=== PATIENT | female | born 1995 ===

== ENCOUNTER 2016-12-10 18:57 | Emergency (ER) | payer MEDICAID ==
[2016-12-10 19:13] VITALS: RESP 16
--- NOTE | 2016-12-10 20:17 | ED PDOC ---
HPI: Female Pain Time Seen by Provider: 12/10/16 19:20 Chief Complaint (Nursing): Female Genitourinary Chief Complaint (Provider): Vaginal discharge History Per: Patient History/Exam Limitations: no limitations Onset/Duration Of Symptoms: Days (2) Current Symptoms Are (Timing): Still Present Additional Complaint(s): PT denies pain. Pt states she has thick white discharge and occasionally has odor. Pt states that she had similar in July. Different MR. Pak has yeast and BV at that time. PT states she uses 5 days course of metro-gel but it did not improve symptoms. Past Medical History Reviewed: Historical Data, Nursing Documentation, Vital Signs Vital Signs: Last Vital Signs Temp 99.1 F 12/10/16 19:10 Pulse 95 H 12/10/16 19:10 Resp 16 12/10/16 19:10 BP 108/61 12/10/16 19:10 Pulse Ox 100 12/10/16 19:10 - Medical History PMH: No Chronic Diseases - Surgical History Surgical History: No Surg Hx - Family History Family History: States: No Known Family Hx - Living Arrangements Living Arrangements: With Family - Home Medications Home Medications: Ambulatory Orders Medication Instructions Recorded Fluconazole [Diflucan] 150 mg PO ONCE #2 tab 12/10/16 - Allergies Allergies/Adverse Reactions: Allergies Allergy/AdvReac Type Severity Reaction Status Date / Time No Known Allergies Allergy Verified 12/10/16 19:10 Review of Systems ROS Statement: Except As Marked, All Systems Reviewed And Found Negative Constitutional: Negative for: Fever, Chills Genitourinary Female: Positive for: Vaginal Discharge. Negative for: Dysuria, Frequency, Vaginal Bleeding, Pelvic Pain Physical Exam - Reviewed Nursing Documentation Reviewed: Yes Vital Signs Reviewed: Yes - Physical Exam Appears: Positive for: Well, Non-toxic, No Acute Distress Head Exam: Positive for: ATRAUMATIC, NORMAL INSPECTION, NORMOCEPHALIC Skin: Positive for: Normal Color, Warm, DRY Eye Exam: Positive for: Normal appearance ENT: Positive for: Normal ENT Inspection Neck: Positive for: Normal, Painless ROM Respiratory: Negative for: Accessory Muscle Use, Respiratory Distress Gastrointestinal/Abdominal: Positive for: Normal Exam, Bowel Sounds, Soft. Negative for: Tenderness Pelvic Exam: Positive for: External Exam Normal, Bimanual Exam Normal, Discharge. Negative for: Speculum Exam Normal (white ), No Cerv. Motion Tender , No Masses, Active Bleeding, Cervicitis Back: Positive for: Normal Inspection Extremity: Positive for: Normal ROM Neurologic/Psych: Positive for: Alert, Oriented - ECG O2 Sat by Pulse Oximetry: 100 Disposition - Clinical Impression Clinical Impression: Vaginitis - Patient ED Disposition Is Patient to be Admitted: No Counseled Patient/Family Regarding: Diagnosis, Need For Followup, Rx Given - [facility]position [facility] Disposition: Routine/Home Disposition Time: 20:21 Condition: GOOD Prescriptions: Fluconazole [Diflucan] 150 mg PO ONCE #2 tab Instructions: Vaginitis (ED) Forms: [facility] (Azeri)
[2016-12-10 20:41] VITALS: BP 133/71; PULSE 86; TEMP 98.8; O2SAT 99
== END 2016-12-10 20:57 | disposition home or self-care (01) ==
LOC: H.ER 18:57
DX: N76.0 Acute vaginitis (principal)

== ENCOUNTER 2017-02-17 03:06 | Emergency (ER) | payer MEDICAID ==
[2017-02-17 03:18] VITALS: BP 107/76; RESP 16; TEMP 99.1; O2SAT 100
[2017-02-17 03:29] VITALS: PULSE 121
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
== END 2017-02-17 05:05 | disposition left against medical advice (07) ==
LOC: H.ER 03:06
DX: M79.604 Pain in right leg (principal)
CPT/HCPCS: 81025; 96372; 99283; J1885

== ENCOUNTER 2017-11-27 20:13 | Emergency (ER) | payer MEDICAID ==
[2017-11-27 20:30] VITALS: BP 107/65; PULSE 74; RESP 16; TEMP 98.3; O2SAT 96
== END 2017-11-27 21:35 | disposition left against medical advice (07) ==
LOC: H.ER 20:13
DX: Z02.89 Encounter for other administrative examinations (principal)

== ENCOUNTER 2018-01-15 09:36 | Emergency (ER) | payer MEDICAID ==
[2018-01-15 09:41] VITALS: RESP 18; TEMP 98.2; O2SAT 98
--- NOTE | 2018-01-15 10:38 | ED PDOC ---
HPI: Female Pain Time Seen by Provider: 01/15/18 10:22 Chief Complaint (Provider): Herpes infection History Per: Patient History/Exam Limitations: no limitations Onset/Duration Of Symptoms: Days (2) Current Symptoms Are (Timing): Still Present Additional Complaint(s): Pt. with burning in vaginal area. States feels same as when she gets herpes breakout. Has had it several times in the past. No rashes. No dysuria, abd pain, weakness, back pain. No fever. No vaginal dc. States no chance she is preg. Just wants a valtrex rx. Past Medical History Reviewed: Nursing Documentation, Vital Signs Vital Signs: Last Vital Signs Temp 98.2 F 01/15/18 09:39 Pulse 79 01/15/18 09:39 Resp 18 01/15/18 09:39 BP 105/66 01/15/18 09:39 Pulse Ox 98 01/15/18 09:39 - Medical History Other PMH: herpes - Surgical History Surgical History: No Surg Hx - Family History Family History: States: Unknown Family Hx - Home Medications Home Medications: Ambulatory Orders Medication Instructions Recorded Fluconazole [Diflucan] 150 mg PO QWK #2 tab 08/04/16 metroNIDAZOLE [Flagyl] 250 mg PO TID #21 tab 08/04/16 Benzocaine [Anbesol] 1 gm MM DAILY #1 gel 11/09/16 Carbamide Peroxide [Antiseptic 5 - 10 ml MM DAILY #60 solution 11/09/16 Mouth Cleanser] Fluconazole [Diflucan] 150 mg PO ONCE #2 tab 12/10/16 valACYclovir [Valtrex] 500 mg PO BID 3 Days tab 01/15/18 - Allergies Allergies/Adverse Reactions: Allergies Allergy/AdvReac Type Severity Reaction Status Date / Time No Known Allergies Allergy Verified 11/27/17 20:27 Review of Systems Constitutional: Negative for: Fever, Weakness Cardiovascular: Negative for: Chest Pain Respiratory: Negative for: Shortness of Breath Gastrointestinal: Negative for: Nausea, Vomiting, Abdominal Pain, Diarrhea, Constipation Genitourinary Female: Negative for: Dysuria, Hematuria Musculoskeletal: Negative for: Neck Pain Skin: Negative for: Rash Neurological: Negative for: Weakness Physical Exam - Reviewed Nursing Documentation Reviewed: Yes Vital Signs Reviewed: Yes - Physical Exam Appears: Positive for: Non-toxic, No Acute Distress Skin: Positive for: Normal Color, Warm, DRY Cardiovascular/Chest: Positive for: Regular Rate, Rhythm Respiratory: Positive for: CNT, Normal Breath Sounds Gastrointestinal/Abdominal: Positive for: Soft. Negative for: Tenderness Pelvic Exam: Positive for: External Exam Normal, Other (no rashes or dc noted; no labial swelling.) Back: Positive for: Normal Inspection. Negative for: L CVA Tenderness, R CVA Tenderness Extremity: Positive for: Normal ROM. Negative for: Tenderness, Pedal Edema Neurologic/Psych: Positive for: Alert, Oriented - ECG O2 Sat by Pulse Oximetry: 98 Pulse Ox Interpretation: Normal - Progress ED Course And Treament: 1041: Pt. demanding valtrex rx for herpes. States same episodes as past. Refusing any further urine or testing. Will rx accordingly. AAOx3. Disposition - Clinical Impression Clinical Impression: Herpes - Patient ED Disposition Is Patient to be Admitted: No Counseled Patient/Family Regarding: Diagnosis, Need For Followup, Rx Given - Disposition Referrals: Terry Ramsey DO [Staff Provider] - 01/16/18 Disposition: Routine/Home Disposition Time: 10:42 Condition: STABLE Additional Instructions: Return if not better in 3 days. Prescriptions: valACYclovir [Valtrex] 500 mg PO BID 3 Days tab Instructions: Genital Herpes (DC) Forms: [facility] ED School/Work Excuse
[2018-01-15 11:10] VITALS: BP 110/70; PULSE 80
== END 2018-01-15 11:09 | disposition home or self-care (01) ==
LOC: H.ER 09:36
DX: A60.00 Herpesviral infection of urogenital system, unspecified (principal)

== ENCOUNTER 2018-02-08 14:08 | Emergency (ER) | payer MEDICAID ==
[2018-02-08 14:30] VITALS: PULSE 96; RESP 18; TEMP 98.5; O2SAT 99
--- NOTE | 2018-02-08 15:05 | ED PDOC ---
HPI: Female Pain Time Seen by Provider: 02/08/18 14:32 Chief Complaint (Nursing): Female Genitourinary Chief Complaint (Provider): Suprapubic Pain History Per: Patient History/Exam Limitations: no limitations Onset/Duration Of Symptoms: Days Current Symptoms Are (Timing): Still Present Quality Of Discomfort: Cramping Additional Complaint(s): 22 year old female presents to the ER for an evaluation of lower center suprapubic pain. Patient states she took tests yesterday at home which were positive. Currently, she has cramping pain. Her LMP was on 01/06/18. Denies nausea, vomiting or diarrhea. OBGYB: Dr. Ramsey Abnormal Vaginal Bleeding: No Past Medical History Reviewed: Historical Data, Nursing Documentation, Vital Signs Vital Signs: Last Vital Signs Temp 98.5 F 02/08/18 14:27 Pulse 96 H 02/08/18 14:27 Resp 18 02/08/18 14:27 BP Pulse Ox 99 02/08/18 14:27 - Medical History PMH: No Chronic Diseases - Family History Family History: States: Unknown Family Hx - Social History Current smoker - smoking cessation education provided: Yes (Light Smoker < 10 Cigarettes Daily) Drugs: Denies - Home Medications Home Medications: Ambulatory Orders Medication Instructions Recorded Fluconazole [Diflucan] 150 mg PO QWK #2 tab 08/04/16 metroNIDAZOLE [Flagyl] 250 mg PO TID #21 tab 08/04/16 Benzocaine [Anbesol] 1 gm MM DAILY #1 gel 11/09/16 Carbamide Peroxide [Antiseptic 5 - 10 ml MM DAILY #60 solution 11/09/16 Mouth Cleanser] Fluconazole [Diflucan] 150 mg PO ONCE #2 tab 12/10/16 valACYclovir [Valtrex] 500 mg PO BID 3 Days tab 01/15/18 Comb No.42/Folic Acid 1 ctb PO DAILY #30 ctb 02/08/18 [Prena1 Chew] - Allergies Allergies/Adverse Reactions: Allergies Allergy/AdvReac Type Severity Reaction Status Date / Time No Known Allergies Allergy Verified 11/27/17 20:27 Review of Systems ROS Statement: Except As Marked, All Systems Reviewed And Found Negative Constitutional: Negative for: Fever, Chills Gastrointestinal: Positive for: Abdominal Pain. Negative for: Nausea, Vomiting, Diarrhea Genitourinary Female: Negative for: Dysuria, Frequency, Incontinence Physical Exam - Reviewed Nursing Documentation Reviewed: Yes Vital Signs Reviewed: Yes - Physical Exam Appears: Positive for: Well, Non-toxic, No Acute Distress Head Exam: Positive for: ATRAUMATIC, NORMAL INSPECTION, NORMOCEPHALIC Skin: Positive for: Normal Color, Warm, Dry. Negative for: Rash Eye Exam: Positive for: EOMI, Normal appearance, PERRL Gastrointestinal/Abdominal: Positive for: Normal Exam, Soft. Negative for: Tenderness, Guarding, Rebound Pelvic Exam: Positive for: Other (patient differed pelvic exam) Neurologic/Psych: Positive for: Alert, Oriented (x3). Negative for: Motor/Sensory Deficits - ECG O2 Sat by Pulse Oximetry: 99 (RA) Pulse Ox Interpretation: Normal Medical Decision Making Medical Decision Making: Time: 1453 Initial Plan: ED Urine Dipstick Urinalysis Reevaluation DIp (-) michele rivers and blood Preg (+) Pt educated on common symptoms in early and signs and symptoms of miscarriage and ectopic discussed at length Pt advised that tylenol is safe to take in and advised to return to ED if pain becomes severe or bleeding develops at anytime Pt scheduled to see Dr. Ramsey on 02/21 ---- Scribe Attestation: Documented by Ivonne Mcclendon, acting as a scribe for Sary Akins PA-C Provider Scribe Attestation: All medical record entries made by the Scribe were at my direction and personally dictated by me. I have reviewed the chart and agree that the record accurately reflects my personal performance of the history, physical exam, medical decision making, and the department course for this patient. I have also personally directed, reviewed, and agree with the discharge instructions and disposition. Disposition - Clinical Impression Clinical Impression: Abdominal pain during in first trimester - Patient ED Disposition Is Patient to be Admitted: No - Disposition Disposition: Routine/Home Disposition Time: :17 Condition: STABLE Prescriptions: Comb No.42/Folic Acid [Prena1 Chew] 1 ctb PO DAILY #30 ctb Instructions: Round Ligament Pain Forms: [facility] (Urdu)
[2018-02-08 15:26] VITALS: BP 132/72
== END 2018-02-08 15:50 | disposition home or self-care (01) ==
LOC: H.ER 14:08
DX: O26.91 Pregnancy related conditions, unspecified, first trimester (principal); R10.2 Pelvic and perineal pain; F17.210 Nicotine dependence, cigarettes, uncomplicated

== ENCOUNTER 2018-02-14 12:45 | Emergency (ER) | payer MEDICAID ==
[2018-02-14 12:52] VITALS: BP 126/76; PULSE 102; RESP 20; TEMP 98.5; O2SAT 99
--- NOTE | 2018-02-14 13:07 | ED PDOC ---
HPI: Female Pain Time Seen by Provider: 02/14/18 12:58 Chief Complaint (Nursing): Abdominal Pain History Per: Patient Onset/Duration Of Symptoms: Days (2) Current Symptoms Are (Timing): Still Present Severity: Moderate Quality Of Discomfort: Unable To Describe Associated Symptoms: denies: Fever, Nausea, Vomiting, Diarrhea, Urinary Symptoms Additional Complaint(s): Generalized abd pain asso with decreased appatite. x 2 days. Denies NVD. Denies vaginal bleeding. Denies fever or urinary sxs. Pt approx 5 weeks . Abnormal Vaginal Bleeding: No Past Medical History Vital Signs: Last Vital Signs Temp 98.5 F 02/14/18 12:49 Pulse 102 H 02/14/18 12:49 Resp 20 02/14/18 12:49 BP 126/76 02/14/18 12:49 Pulse Ox 99 02/14/18 12:49 - Medical History PMH: No Chronic Diseases - Family History Family History: States: Unknown Family Hx - Home Medications Home Medications: Ambulatory Orders Medication Instructions Recorded Fluconazole [Diflucan] 150 mg PO QWK #2 tab 08/04/16 metroNIDAZOLE [Flagyl] 250 mg PO TID #21 tab 08/04/16 Benzocaine [Anbesol] 1 gm MM DAILY #1 gel 11/09/16 Carbamide Peroxide [Antiseptic 5 - 10 ml MM DAILY #60 solution 11/09/16 Mouth Cleanser] Fluconazole [Diflucan] 150 mg PO ONCE #2 tab 12/10/16 valACYclovir [Valtrex] 500 mg PO BID 3 Days tab 01/15/18 Comb No.42/Folic Acid 1 ctb PO DAILY #30 ctb 02/08/18 [Prena1 Chew] Doxylamine/Pyridoxine HCl (B6) 1 each PO DAILY #20 tablet. 02/14/18 [Ana Mullen 10-10 mg Tablet] - Allergies Allergies/Adverse Reactions: Allergies Allergy/AdvReac Type Severity Reaction Status Date / Time No Known Allergies Allergy Verified 02/14/18 12:49 Review of Systems Constitutional: Negative for: Fever Gastrointestinal: Positive for: Abdominal Pain. Negative for: Nausea, Vomiting, Diarrhea Genitourinary Female: Negative for: Dysuria, Frequency, Vaginal Bleeding Physical Exam - Physical Exam Appears: Positive for: Non-toxic, No Acute Distress Skin: Positive for: Normal Color, Warm, DRY Gastrointestinal/Abdominal: Positive for: Bowel Sounds, Soft. Negative for: Tenderness Back: Negative for: L CVA Tenderness, R CVA Tenderness Extremity: Positive for: Normal ROM Neurologic/Psych: Positive for: Alert, Oriented - Laboratory Results Result Diagrams: 02/14/18 13:15 02/14/18 13:15 - ECG O2 Sat by Pulse Oximetry: 99 Disposition - Clinical Impression Clinical Impression: Abdominal pain during - Patient ED Disposition Is Patient to be Admitted: No Counseled Patient/Family Regarding: Studies Performed, Diagnosis, Need For Followup, Rx Given - Disposition Referrals: Terry Ramsey DO [Staff Provider] - Disposition: Routine/Home Disposition Time: 14:45 Condition: FAIR Prescriptions: Doxylamine/Pyridoxine HCl (B6) [Ana Mullen 10-10 mg Tablet] 1 each PO DAILY #20 tablet. Instructions: Morning Sickness (DC) Forms: [facility] (Djiboutian)
[2018-02-14 13:28] LABS: BASO # 0.1 K/uL (0.0-0.2); BASO % 0.7 % (0.0-2.0); EOS # 0.8 K/uL (0.0-0.7); EOS % 6.4 % (0.0-4.0); HEMOGLOBIN 13.4 g/dL (12.0-16.0); LYMPH # 2.2 K/uL (1.0-4.3); LYMPH % 16.5 % (20.0-40.0); MEAN CELL VOLUME 88.4 fl (81.0-99.0); MEAN CORPUSCULAR HEMOGLOBIN 29.1 pg (27.0-31.0); MEAN CORPUSCULAR HGB CONC 32.9 g/dL (33.0-37.0); MEAN PLATELET VOLUME 8.8 fl (7.2-11.7); MONO # 1.2 K/uL (0.0-0.8); MONO % 9.4 % (0.0-10.0); NEUT # 8.8 K/uL (1.8-7.0); RBC 4.61 Mil/uL (3.80-5.20); RED CELL DISTRIBUTION WIDTH 13.6 % (11.5-14.5); WHITE BLOOD COUNT 13.2 K/uL (4.8-10.8)
[2018-02-14 13:39] LABS: ALB/GLOB RATIO 1.4 (1.0-2.1); ALBUMIN 4.4 g/dL (3.5-5.0); ALT/SGPT 20 U/L (9-52); AST/SGOT 21 U/L (14-36); BLOOD UREA NITROGEN 7 mg/dl (7-17); CALCIUM 9.7 mg/dL (8.4-10.2); GFR NON-AFRICAN AMERICAN > 60
--- NOTE | 2018-02-15 09:57 | US ---
Date of service: 2018-02-14 13:07:54 PROCEDURE: OB Pelvic Ultrasound HISTORY: r/o ectopic LMP: COMPARISON: None available. FINDINGS: UTERUS: Gestational sac: Diameter is 11 mm equivalent to 5 weeks 2 days gestational age. Marcelline-rump length is 5 mm equivalent to 6 weeks 2 days. Composite gestational age by ultrasound is 5 weeks 0 days Heart rate: 99 bpm. Debby-gestational hemorrhage: None. Date of delivery (Ultrasound estimated) : 10/11/2018 Uterus measures 6.8 x 6.1 x 4.9 cm. Normal in size and appearance. CERVIX: Long and closed RIGHT OVARY: Measures 3.1 x 2.7 x 2.0 cm. No mass lesion. Normal flow. LEFT OVARY: Measures 2.9 x 2.3 x 1.6 cm. No solid mass. Normal flow. FREE FLUID: None. OTHER FINDINGS: None. IMPRESSION: Single live intrauterine gestation of approximately 5 weeks 0 days gestational age. heart rate 99 beats per minute. No subchorionic hemorrhage. Otherwise unremarkable.
== END 2018-02-14 14:55 | disposition home or self-care (01) ==
LOC: H.ER 12:45
DX: O26.91 Pregnancy related conditions, unspecified, first trimester (principal); Z3A.01 Less than 8 weeks gestation of pregnancy

== ENCOUNTER 2018-06-30 16:05 | Emergency (ER) | payer MEDICAID, OTHER ==
[2018-06-22 04:57] VITALS: BMI 32.2
--- NOTE | 2018-07-04 14:31 | OBHP ---
Datetime: 06/30/2018 17:01 IP Adm Impression: , intrauterine ; No Active Labor IP Chief Complaint Other: Active herpes lesion IP Admit Plan: Observation/Evaluation; Discharge home Admit Comment, IP Provider: with IUP at 25wks presenting here today for evaluation of reactivation of genital herpes which started about 2 days ago. patient reports of history of herpes which rarely recurs and has been having an average of about 2 outbreaks per year. This is the first outbreak in her current and has previously been sherice frederick with valtrex. care with Dr Ramsey, Uncomplicated course. O; Afebrile Heart: RRR Chest: Clinically Stable Abd: Soft, NT, BS- present FHR- 150s regular TOCO- None SVE: Solitary 2mm diameter outbreak on the flores of the clitoris. Assessment: IUP at 25weeks Genital Herpes Plan: Valtrex 1gm BID for 10 days Follow up with Dr Ramsey for further evaluation. Pelvic rest Herpes prophylaxis at 36 weeks discussed. Extremities - PN: Normal Abdomen - PN: Normal Lungs - PN: Normal Heart - PN: Normal HEENT - PN: Normal General - PN: Normal FHR - Baseline A Provider: 150 Membranes, Provider: Intact Gestation - Est Wks by US: 25.0 IP Hx Assessment: The History has been Reviewed and is Current EGA AdmitDate IP: 25.0 Vital Signs Provider: Within Normal Limits IP Chief Complaint: Maternal discomfort NICHD Variability Prov Fetus A: Moderate 6-25bpm NICHD Accel Fetus A IP Provider: 10X10 FHR Category Provider Fetus A: Category I NICHD Decel Fetus A IP Provider: None
[2018-07-04 18:29] VITALS: BP 106/61; PULSE 102; RESP 20; TEMP 98.6; O2SAT 99
== END 2018-06-30 17:12 | disposition home or self-care (01) ==
LOC: H.EROB2 16:05
DX: O98.312 Other infections with a predominantly sexual mode of transmission complicating pregnancy, second trimester (principal); Z3A.25 25 weeks gestation of pregnancy

== ENCOUNTER 2018-07-16 21:16 | Emergency (ER) | payer OTHER ==
[2018-07-16 21:42] VITALS: BMI 30.9
--- NOTE | 2018-07-16 21:46 | OBHP ---
Datetime: 07/16/2018 21:40 IP Adm Impression: , intrauterine ; No Active Labor; Intact Membranes IP Admit Plan: Observation/Evaluation; Discharge home Admit Comment, IP Provider: The patient is a 25-year-old 1 para 0 estimated gestational age 27-week's estimated due date October 13, 2018 patient presents to labor and delivery complaining of supr apubic discomfort times 3 days duration. Patient states she is currently taking vaginal cream for ye ast infection. Patient reports good movement no vaginal bleeding no leakage of fluid. Patient states care has been unremarkable. Past medical history none Medications vitamins and Valtrex Social history denies alcohol tobacco use Obstetrical history Review of systems patient denies headache chest pain shortness of breath palpitations nausea vomit ing diarrhea vaginal bleeding heat or cold intolerance easy bruisability musculoskeletal or neurologi tamiko complaints Vital signs stable afebrile Physical exam see notes Intrauterine at 27 weeks External monitor Urine analysis Observation Discharge home labor precautions Pelvic Type - PN: Adequate Extremities - PN: Normal Abdomen - PN: Normal Back - PN: Normal Breast - PN: Not Done Lungs - PN: Normal Heart - PN: Normal Thyroid - PN: Normal Neurologic - PN: Normal HEENT - PN: Normal General - PN: Normal Presentation-Admit: Vertex Gestation - Est Wks by US: 27.0 Pool Provider: Negative EGA AdmitDate IP: 27.2 Vital Signs Provider: Reviewed IP Chief Complaint: Maternal discomfort FHR Category Provider Fetus A: Category I NICHD Decel Fetus A IP Provider: None Dilatation, Provider: 0 Effacement, Provider: 0 Station, Provider: 0 Genitourinary Exam: Normal DTRs - PN: Normal
[2018-07-16 21:59] LABS: SQUAMOUS EPITHIAL 3 /hpf (0-5); URINE BACTERIA MANY (<OCC); URINE BILIRUBIN NEGATIVE (NEGATIVE); URINE BLOOD NEGATIVE (NEGATIVE); URINE CLARITY SLIGHTY-CLOUDY (Clear); URINE COLOR YELLOW (YELLOW); URINE GLUCOSE (UA) NEG (NEGATIVE); URINE LEUKOCYTE ESTERASE MOD Leu/uL (Negative); URINE PROTEIN NEGATIVE (NEGATIVE); URINE UROBILINOGEN 0.2-1.0 mg/dL (0.2-1.0)
[2018-07-17 03:30] VITALS: BP 119/76; PULSE 105; TEMP 98; O2SAT 100
== END 2018-07-16 22:45 | disposition home or self-care (01) ==
LOC: H.EROB2 21:16
DX: O26.92 Pregnancy related conditions, unspecified, second trimester (principal); R10.2 Pelvic and perineal pain; Z3A.27 27 weeks gestation of pregnancy